=== PATIENT | male | born 1985 | race Caucasian/White ===

== ENCOUNTER 2017-03-27 19:22 | Emergency (ER) | payer SELFPAY ==
[2017-03-27] MEDS ORDERED: PROMETHAZINE HCL 25 MG TABLET PO ONE (21:27)
[2017-03-27] MEDS ORDERED: OXYCODONE-ACETAMINOPHEN 5-325 MG TABLET PO ONE (21:27)
--- NOTE | 2017-03-27 21:27 | ER Document Report ---
HPI - HPI Patient complains to provider of: dental pain Pain Level: 4 Context: Patient is a 31-year-old male comes emergency department for chief complaint of pain in the upper part of his teeth/gum line/jaw. He states it feels swollen underneath his nose. He states symptoms have been worsening for several days, he tried [id number]-nacumum medications, he tried taking amoxicillin and Keflex doses that were left over from previous illnesses and family members. He states symptoms have not improved. He denies fever or chills, difficulty swallowing or breathing. Pain is over the area where he had a dental fracture, he has not been able to see a dentist yet. Past Medical History - General Information source: Patient - Social History Smoking Status: Current Some Day Smoker Drug Abuse: None Lives with: Family Family History: Reviewed & Not Pertinent - Medical History Medical History: Negative Surgical Hx: Negative - Immunizations Immunizations up to date: Yes Hx Diphtheria, Pertussis, Tetanus Vaccination: Yes Vertical Provider Document - CONSTITUTIONAL General Appearance: WD/WN, Mild Distress - Patient appears uncomfortable - HEENT HEENT: Atraumatic, Normocephalic Mouth Diagram: 1 - Dental fracture with small remaining broken tooth in the gumline, superior to this there is swelling of the gumline with what appears to be a fluctuant head, the area is erythematous and significantly tender. Otherwise normal oropharyngeal exam - NECK Neck: Normal Inspection - RESPIRATORY Respiratory: Breath Sounds Normal, No Respiratory Distress O2 Sat by Pulse Oximetry: 97 - CARDIOVASCULAR Cardiovascular: Regular Rate, Regular Rhythm - GI/ABDOMEN Gastrointestinal: Abdomen Soft, Abdomen Non-Tender - MUSCULOSKELETAL/EXTREMETIES Musculoskeletal/Extremeties: MAEW, FROM, Non-Tender - NEURO Level of Consciousness: Awake, Alert, Appropriate - DERM Integumentary: Warm, Dry, No Rash Course - Re-evaluation Re-evalutation: Dental abscess on examination, this was opened, large amount of purulent drainage expressed, patient with significant improvement and relief of symptoms afterwards. Starting on clindamycin, referring to dentist, discussed recommendations and return precautions. Patient states understanding and agreement. - Vital Signs Vital signs: Temp Pulse Resp BP Pulse Ox 98.5 F 84 16 135/79 H 97 03/27/17 20:02 03/27/17 20:02 03/27/17 20:02 03/27/17 20:02 03/27/17 20:02 Procedures - Incision and Drainage Abscess on left upper gum area Type: Single Blade size: 11 Incision Method: Incision made by scalpel Amount/type of drainage: About 10 cc of purulent drainage Discharge - Discharge Clinical Impression: Oral abscess Condition: Stable Disposition: HOME, SELF-CARE Additional Instructions: The abscess has been drained, it will continue to leak and bleed somewhat, performance of the mouth, take the antibiotics as prescribed. Call the dental referral to set up your follow-up appointment to arrange for extraction to prevent this from happening again. Return if you worsen including returned swelling, fever, or any other concerning symptoms. Prescriptions: Clindamycin HCl [Cleocin 150 mg Capsule] 150 mg PO Q6 #56 capsule Referrals: [facility] [Provider Group] - Follow up in 1 week
[2017-03-27] MEDS ORDERED: CLINDAMYCIN HCL 150 MG CAPSULE PO ONE (22:24)
[2017-03-27] MEDS ORDERED: HYDROCODONE/ACETAMINOPHEN 5-325 MG (6 TAB/ER DISP) PO PRN (22:24)
[2017-03-27 22:40] VITALS: BP 163/100
== END 2017-03-27 22:39 | disposition home or self-care (01) ==
LOC: ER 19:22
PROC: 0C95XZZ Drainage of Upper Gingiva, External Approach (ICD-10-PCS; principal; 2017-03-27)
DX: K04.7 Periapical abscess without sinus (principal); K08.89 Other specified disorders of teeth and supporting structures; F17.200 Nicotine dependence, unspecified, uncomplicated
CPT/HCPCS: 99283

== ENCOUNTER 2018-11-08 15:56 | Emergency (ER) | payer SELFPAY ==
[2018-11-08 16:06] VITALS: BP 135/93
--- NOTE | 2018-11-08 16:24 | ER Document Report ---
HPI - HPI Patient complains to provider of: dental pain Time Seen by Provider: 11/08/18 16:20 Onset: Yesterday Onset/Duration: Sudden, Persistent Context: This 33-year-old male presents emergency department with upper right-sided dental pain after he pulled his own wisdom tooth yesterday. He complains of pain also reports he vomited once this morning. Denies fever or diarrhea. Reports he does not have dental insurance. Widespread dental decay. Patient was able to eat without any problems. Associated Symptoms: Vomiting Exacerbated by: Denies Relieved by: Denies Similar symptoms previously: No Recently seen / treated by doctor: No Past Medical History - General Information source: Patient - Social History Smoking Status: Unknown if Ever Smoked Cigarette use (# per day): No Frequency of alcohol use: None Drug Abuse: None Family History: Reviewed & Not Pertinent Patient has suicidal ideation: No Patient has homicidal ideation: No - Medical History Medical History: Negative Renal/ Medical History: Denies: Hx Peritoneal Dialysis Surgical Hx: Negative - Immunizations Immunizations up to date: Yes Hx Diphtheria, Pertussis, Tetanus Vaccination: Yes Vertical Provider Document - CONSTITUTIONAL Agree With Documented VS: Yes Exam Limitations: No Limitations General Appearance: WD/WN, No Apparent Distress - HEENT HEENT: Atraumatic, Normocephalic Mouth Diagram: 1 - Opening noted no erythema no pustule no swelling noted. Patient opens his mouth wide good airway no trismus no Adrian's - NECK Neck: Normal Inspection, Supple. negative: Lymphadenopathy-Left, Ly mphadenopathy-Right - RESPIRATORY Respiratory: No Respiratory Distress - CARDIOVASCULAR Cardiovascular: Regular Rate - MUSCULOSKELETAL/EXTREMETIES Musculoskeletal/Extremeties: FELICIANO MCLAUGHLIN - NEURO Level of Consciousness: Awake, Alert, Appropriate - DERM Integumentary: Warm, Dry Course - Re-evaluation Re-evalutation: 11/08/18 17:55 This patient presents emergency department after pulling his own wisdom tooth. Complains of pain. No obvious signs of infection. Patient was instructed on penicillin he was also given a written resource list of dentist to follow-up with. He verbalized understand all instructions. Dictation of this chart was performed using voice recognition software; therefore, there may be some unintended grammatical errors. - Vital Signs Vital signs: Temp Pulse Resp BP Pulse Ox 98.2 F 66 16 135/93 H 100 11/08/18 16:05 11/08/18 16:05 11/08/18 16:05 11/08/18 16:05 11/08/18 16:05 Discharge - Discharge Clinical Impression: Pain, dental Condition: Stable Disposition: HOME, SELF-CARE Instructions: Caring [facility], [facility], Penicillin V K ([facility]), Toothache ([facility]) Additional Instructions: *You have been evaluated for dental pain *Take medications as prescribed *Follow up with dentist as soon as possible Do not pull your own teeth *Return to ED for worsening condition, changes, needs Monitor your blood pressure. Your blood pressure was elevated today. This may be because you were anxious, in pain or because you need medication. It is important to follow up with your primary care provider for full evaluation. Prescriptions: Penicillin V Potassium [Penicillin Vk 500 mg Tablet] 500 mg PO BID #20 tablet Forms: Elevated Blood Pressure
[2018-11-08] MEDS ORDERED: KETOROLAC TROMETHAMINE 60 MG/2 ML SDV IM ONE (16:39)
[2018-11-08] MEDS ORDERED: LIDOCAINE 2% VISCOUS SOLN 20 ML UDCUP PO ONE (16:39)
== END 2018-11-08 17:15 | disposition home or self-care (01) ==
LOC: ER 15:56
DX: K02.9 Dental caries, unspecified (principal); K08.89 Other specified disorders of teeth and supporting structures; R11.10 Vomiting, unspecified
CPT/HCPCS: 99282; 96372; J1885; J3490